=== PATIENT | male | born 1960 | race Caucasian/White ===

== ENCOUNTER → 2019-03-25 10:18 | Outpatient (CLI) | payer MEDICARE, MEDICAID, SELFPAY ==
--- NOTE | 2019-03-25 10:24 | CA_ITS ---
APPROVED REPORT EXAM: Comprehensive 2D, Doppler, and color-flow Echocardiogram Financial Planning Assistant: Pauline Nettles RT(R) Ht: 6 ft 0 in Wt: 193lbs BSA: 2.10 BP: 148/96 mmHg Indications: Shortness of Breath, Atrial Fibrillation (chronic), CAD 2D Dimensions LVOT 2.30 cm (M/F) 1.5-2.5 M-Mode Dimensions RVDd 2.60 cm (0.9-2.6) LA Diam 4.60 cm (1.9-4.0) LVDd 5.20 cm (3.5-5.7) Ao Diam 2.80 cm (2.0-3.7) LVDs 3.90 cm (3.5-5.7) AV Cusp 2.10 cm (1.5-2.6) IVSd 0.90 cm (0.6-1.1) PWd 0.90 cm (0.6-1.1) EF (Teich) 49.30% FS 25.00% EDV (Teich) 130.00 mL ESV (Teich) 65.90 mL LV Diastology E/A Ratio 0.7 MED E' 5.56 (< 7 cm/sec) E'/MED E' Ratio 8.70 (>14) LAT E' 8.41 (<10 cm/sec) E/LAT E' Ratio 5.80 (>14) Mitral Valve MV E Max Je. 48.50 (40-130 cm/s) MV A Velocity 74.50 (40-130 cm/s) E/A Ratio 0.70 Left Ventricle Left atrium is mildly enlarged, left ventricle is normal size, mild concentric left ventricular hypertrophy, visually estimated ejection fraction of 50% with no regional wall motion abnormality. Endocardial surfaces are poorly visualized. Diastolic parameters are inconclusive. Right Ventricle Right atrium and right ventricular normal size and contractility. Aortic Valve Aortic valve is minimally thickened and fibrosed leaflet continue to display good mobility, there is no aortic stenosis or aortic insufficiency. Mitral Valve Mitral valve is grossly normal, there is mild mitral regurgitation. Tricuspid Valve Tricuspid valve is grossly normal, there is mild tricuspid regurgitation, tricuspid regurgitation jet velocity is inadequate for calculation of the right ventricular systolic pressure. Pulmonic Valve Pulmonic valve is poorly visualized. Great Vessels Aortic root is normal size. Pericardium No significant pericardial effusion noted. Conclusion 1. Mildly low left atrium, normal left ventricular size, mild concentric left ventricular hypertrophy, visually estimated ejection fraction 50% with no regional wall motion abnormality, endocardial surfaces are poorly visualized. Diastolic parameters are inconclusive. 2. Mild mitral and tricuspid regurgitation. 3. No significant pericardial effusion noted. Electronically signed by : Jose Ramon Weaver, 03/28/2019 17:49:53
== END ==
PROVIDERS: Visit Provider Internal Medicine
DX: G47.33 Obstructive sleep apnea (adult) (pediatric); I11.9 Hypertensive heart disease without heart failure; I25.10 Atherosclerotic heart disease of native coronary artery without angina pectoris; I48.0 Paroxysmal atrial fibrillation; E78.49 Other hyperlipidemia
CPT/HCPCS: 93306

== ENCOUNTER → 2020-11-10 11:05 | Outpatient (CLI) | payer MEDICARE, MEDICAID, SELFPAY ==
--- NOTE | 2020-11-10 11:06 | CA_ITS ---
APPROVED REPORT EXAM: Comprehensive 2D, Doppler, and color-flow Echocardiogram Straight Slicing Machine Operator: Pauline Nettles RT(R) Ht: 6 ft 0 in Wt: 202lbs BSA: 2.14 BP: 144/89 mmHg Indications: SOB, AFIB, CAD, MR, TR, HLD, AMRIK 2D Dimensions LVOT 2.00 cm (M/F) 1.5-2.5 LVEF (Sewell's) 48.20 % LV Volume 143.90 mL LA Volume 45.20 mL LA Volume Index 21.10 mL/m2 (M/F) 16-34 M-Mode Dimensions RVDd 3.14 cm (0.9-2.6) LA Diam 4.12 cm (1.9-4.0) LVDd 6.20 cm (3.5-5.7) Ao Diam 2.95 cm (2.0-3.7) LVDs 4.79 cm (3.5-5.7) IVSd 1.09 cm (0.6-1.1) PWd 0.60 cm (0.6-1.1) EF (Teich) 44.80% FS 22.70% EDV (Teich) 194.00 mL TAPSE 2.11 (<1.7) ESV (Teich) 107.00 mL LV Diastology E Decel Time 237.00 (160-240 msec) E/A Ratio 0.64 MED E' 6.80 (< 7 cm/sec) E'/MED E' Ratio 8.22 (>14) LAT E' 10.00 (<10 cm/sec) E/LAT E' Ratio 5.59 (>14) Mitral Valve MV E Max Je. 56.00 (40-130 cm/s) MV A Velocity 88.00 (40-130 cm/s) E/A Ratio 0.64 MV Decel. Time 237.00 (160-240 ms) MV PHT 69.00 ms Tricuspid Valve TR P. Velocity 197.00 cm/s RAP Estimate 10.00 mmHg RVSP 25.50 mmHg Left Ventricle Left atrium is mildly enlarged, left ventricle is normal size, mild concentric left ventricular hypertrophy, visually estimated ejection fraction 45%, there is marked hypokinesis involving the inferior, inferior basal and inferolateral wall. Endocardial surfaces are poorly visualized, grade 1 diastolic dysfunction seen without tissue Doppler evidence of raise left atrial pressure. Right Ventricle Right atrium and right ventricle are normal size and contractility. Aortic Valve Aortic valve is minimally thickened and fibrosed, there is no aortic stenosis or aortic insufficiency. Mitral Valve Mitral valve leaflets are minimally thickened, there is mild mitral regurgitation. Tricuspid Valve Tricuspid grossly normal, there is mild tricuspid regurgitation, tricuspid regurgitation jet velocity is inadequate for calculation of the right ventricular systolic pressure. Pulmonic Valve Pulmonic valve is poorly visualized. Great Vessels Aortic root is normal size. Pericardium No significant pericardial effusion noted. Conclusion 1. Mildly enlarged left atrium, normal left ventricular size, mild concentric left ventricular hypertrophy, visually estimated ejection fraction 45% with segmental wall motion abnormality described above, grade 1 diastolic dysfunction seen without tissue Doppler evidence of raise left atrial pressure. 2. Mild mitral and tricuspid regurgitation. 3. No significant pericardial effusion noted. Electronically signed by : Jose Ramon Weaver, 11/11/2020 15:12:09
--- NOTE | 2020-11-10 11:38 | NM_ITS ---
APPROVED REPORT Exam: Nuclear Stress Test Indication: CAD, H/O M.I., HTN, HYPERLIPIDEMIA, SOB, SYNCOPE Patient Location: Outpatient Stress Tech: Soo Gonzalez OR Tech:Marilia Arce, ARRT RT (R)(N)(M) Ht: 6 ft 0 in Wt: 202 lbs HR: 58 bpm BP: 152/93 mmHg BSA: 2.14 m2 History: CAD, H/O M.I., HTN, HYPERLIPIDEMIA, SOB, SYNCOPE Procedure: Patient received a 0.4 mg of intravenous Lexiscan, resting heart rate 58 bpm, resting blood pressure 152/93 mmHg, with Lexiscan maximum heart rate achived was 76 bpm which is Less than 85 % of the maximum predicted heart rate and blood pressure was 135/83 mmHg. With Lexiscan, patient denied any complaint of chest pain. Electrocardiogram Resting electrocardiogram shows sinus rhythm nonspecific ST-T changes, with Lexiscan there is less than 1.[address] segment depression noted from the baseline EKG. The EKG portion of the Lexiscan is nondiagnostic. Cardiac Stress and Resting SPECT Images: Cardiac Stress and Resting SPECT images were obtained using technetium 99m Myoview 31.3 mCi stress and 10.18 mCi at rest. Gated SPECT for analysis of segmental wall motion and calculation of the ejection fraction also done, prone images were also obtained. Cardiac stress and resting SPECT images show moderate to large sized area of fixed defect involving the inferior, inferior lateral, and apical wall consistent with area of myocardial scarring without significant ellie-infarct ischemia. The left ventricle is dilated, there is transient ischemic dilatation of the left ventricle is also seen. Computer derived ejection fraction is 41% with marked hypokinesis involving the inferior, inferior lateral and apical wall. Right ventricle is mildly enlarged with normal contractility. Conclusion: 1. The EKG portion of the Lexiscan is nondiagnostic 2. Scintigraphic evidence of myocardial scarring involving the inferior, inferior lateral and apical wall without significant ellie-infarct ischemia, there is transient ischemic dilatation of the left ventricle seen, computer derived ejection fraction is 41% with segmental wall motion abnormalities described above, right ventricle is mildly enlarged with normal contractility. 3. Abnormal Lexiscan Myoview study. Electronically signed by : Jose Ramon Weaver, 11/11/2020 10:02:01
--- NOTE | 2020-11-10 14:08 | CA_ITS ---
APPROVED REPORT Exam: Pharmacologic Technologist: Soo Gonzalez, Ht: 6 ft 0 in Wt: 202 lbs BSA: 2.14 m2 HR: 58 bpm BP: 152/93 mmHg Medical History Medications: Lisinopril,,,,, Aspirin,,,,, Ferrous sulfate,,,,, Pantoprazole,,,,, HCTZ,,,,, XaRELTO,,,,, Bystolic,,,,, Effient,,,,, Evolocumab,,,,, Stress Test Details Test: LEXISCAN HR Resting HR: 65 bpm Max Heart Rate (APMHR): 158.885232 bpm Max HR Achieved: 78 bpm Target HR (85% APMHR): 134.507329 bpm % of APMHR: 49.37 Recovery HR: 69 bpm BP Resting BP: 152/93 mmHg Max BP: 152/93 mmHg Recovery BP: 144.0/96.0 mmHg ECG Resting ECG: NSR, probable old inferior or inferior-lateral HI, PVC Clinical Exercise duration: 04:08 min Highest Stage Achieved: Stress ECG Conclusion Symptoms: SOA, malaise, mild TREVIÑO. No CP. Arrythmias/Ectopy: Rare PVC. ST-T Changes: No significant changes. Conclusion: Unremarkable Lexiscan stress. Myoview images reported separately. Test Summary . . . . . . Stop exercise at 04:08 . . . . Electronically signed by : Jose Ramon Weaver, 11/11/2020 09:58:00
== END ==
PROVIDERS: PCP Emergency Medicine; Visit Provider Nurse Practitioner Family
DX: E78.5 Hyperlipidemia, unspecified (principal); G47.33 Obstructive sleep apnea (adult) (pediatric); I11.9 Hypertensive heart disease without heart failure; I25.10 Atherosclerotic heart disease of native coronary artery without angina pectoris; I48.91 Unspecified atrial fibrillation; R06.00 Dyspnea, unspecified
CPT/HCPCS: 78452; 93017; 93306; A9502; J2785

== ENCOUNTER 2020-11-18 09:27 | Day surgery (SDC) | payer MEDICARE, MEDICAID, SELFPAY ==
[2020-11-18] VITALS (12 sets, daily range): BP systolic 95–132; BP diastolic 56–83; PULSE 55–67; RESP 16; TEMP 36.9; O2SAT 91–96; BMI 27.3
--- NOTE | 2020-11-18 | IR_ITS ---
APPROVED REPORT Patient Location: Outpatient Four Slide Machine Operator: LAUREL Deleon RT (R) PROCEDURES Left heart catheterization Left ventriculogram Selective coronary angiogram INDICATION Risk abnormal Myoview, Angina pectoris, Informed consent was obtained prior to the procedure. COMPLICATIONS NONE Estimated Blood Loss: LESS THAN 10 MLS TECHNIQUE One percent lidocaine used to anesthetize the right anterior aspect of the wrist. The right radial artery was accessed via the Seldinger technique. A 6 Portuguese sheath was placed in the right radial artery. 2.5 mg of verapamil, 800 mcg of nitroglycerin, 1mg Lidocaine and 5000 U Heparin were given through the arterial sheath. The Poppa catheter was also used to perform left heart catheterization, left ventriculogram and selective coronary angiogram. At the end of the procedure the sheath was removed good hemostasis was achieved using Traclet band, patient was transferred to the postop holding area in stable condition. ANGIOGRAPHIC RESULTS The left main artery Normal The left anterior descending artery Has mild mid vessel smooth 10 to 20% stenoses. LINDA II flow was present The circumflex artery Is a nondominant vessel with a proximal small aneurysmal/vascular ectatic dilatation. LINDA-3 flow is present there is no atherosclerosis identified in the vessel The right coronary artery Is a large dominant vessel and has severe diffuse vascular ectasia accompanied by LINDA II flow. 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 Medical management for both coronary artery disease and vascular ectasia 2. Continue aspirin 3. LDL less than 55 4. Long-acting nitrates may help with the endothelial dysfunction 5. Avoidance of tobacco products 6. Ongoing risk factor modification Electronically signed by : Marco Valle, 11/18/2020 11:12:42
[2020-11-18 10:10] LABS: Basophils # 0.1 K/mm3 (0-0.2); Basophils % 1.4 % (0.1-2.0); Eosinophils # 0.3 K/mm3 (0.0-0.4); Eosinophils % 3.3 % (0.1-12.0); Hematocrit 40.5 % (42.0-52.0); Hemoglobin 12.7 g/dL (14.1-18.0); Lymphocytes # 1.4 K/mm3 (0.7-4.5); Mean Corpuscular HGB Conc 31.2 g/dL (31.8-35.4); Mean Corpuscular Hemoglobin 25.7 pg (27.0-31.2); Mean Corpuscular Volume 82.1 fl (80-94); Mean Platelet Volume 7.3 fl (7.4-10.4); Monocytes # 0.5 K/mm3 (0.1-1.0); Monocytes % 6.3 % (1.7-9.3); Neutrophils # 5.7 K/mm3 (1.8-7.8); Platelet Count 336 K/mm3 (142-424); Red Blood Count 4.93 M/mm3 (4.60-6.20); Red Cell Distribution Width 22.2 % (11.5-17.5)
[2020-11-18 10:17] LABS: Chloride 97 mmol/L (98-107); Sodium 133 mmol/L (136-145)
[2020-11-18 10:18] LABS: Potassium 3.3 mmoL/L (3.5-5.1)
[2020-11-18 10:20] LABS: Anion Gap 14.3 mEq/L (5-15); Blood Urea Nitrogen 12 mg/dl (9-20); Carbon Dioxide 25 mmol/L (22.0-30.0); Creatinine Clearance Estimated 99 mL/min (50-200); Estimated Glomerular Filt Rate 76 ml/min (>60); GFR (African American) 92 ML/MIN (>60)
[2020-11-18 10:21] LABS: Calcium 9.9 mg/dl (8.4-10.2); Glucose 126 mg/dl (74-100)
[2020-11-18 10:35] LABS: Coronavirus 19 IgG Antibody Positive (Negative); Coronavirus 19 IgM Antibody Negative (Negative)
== END 2020-11-18 14:16 | disposition home or self-care (01) ==
PROVIDERS: PCP Family Medicine; Visit Provider Internal Medicine
DX: I25.118 Atherosclerotic heart disease of native coronary artery with other forms of angina pectoris (principal); I10 Essential (primary) hypertension; Z88.8 Allergy status to other drugs, medicaments and biological substances; I48.0 Paroxysmal atrial fibrillation; G47.33 Obstructive sleep apnea (adult) (pediatric); Z79.82 Long term (current) use of aspirin; E78.2 Mixed hyperlipidemia
CPT/HCPCS: 80048; 85025; 86328; 93458; 99152; C1725; C1769; J1644; Q9967

== ENCOUNTER → 2021-12-08 11:46 | Outpatient (CLI) | payer MEDICARE, SELFPAY ==
[2021-12-08 14:09] LABS: Basophils # 0.2 K/mm3 (0-0.2); Basophils % 2.2 % (0.1-2.0); Eosinophils # 0.1 K/mm3 (0.0-0.4); Eosinophils % 1.4 % (0.1-12.0); Hematocrit 43.9 % (42.0-52.0); Hemoglobin 14.8 g/dL (14.1-18.0); Lymphocytes # 1.6 K/mm3 (0.7-4.5); Lymphocytes % 22.7 % (10-50); Mean Corpuscular HGB Conc 33.7 g/dL (31.8-35.4); Mean Corpuscular Hemoglobin 30.4 pg (27.0-31.2); Mean Corpuscular Volume 90.2 fl (80-94); Mean Platelet Volume 7.6 fl (7.4-10.4); Monocytes # 0.4 K/mm3 (0.1-1.0); Monocytes % 5.7 % (1.7-9.3); Neutrophils # 4.8 K/mm3 (1.8-7.8); Platelet Count 372 K/mm3 (142-424); Red Blood Count 4.87 M/mm3 (4.60-6.20); Red Cell Distribution Width 13.6 % (11.5-17.5); White Blood Count 7.1 K/mm3 (4.8-10.8)
[2021-12-08 14:44] LABS: Chloride 101 mmol/L (98-107); Potassium 4.6 mmoL/L (3.5-5.1); Sodium 137 mmol/L (136-145)
[2021-12-08 14:46] LABS: Bilirubin,Unconjugated 0.3 mg/dL (0.0-1.1); Blood Urea Nitrogen 16 mg/dl (9-20); Estimated Glomerular Filt Rate 61 ml/min (>60); GFR (African American) 74 ML/MIN (>60)
[2021-12-08 14:47] LABS: Alanine Aminotransferase 32 U/L (12-78); Albumin Level 4.4 g/dl (3.5-5.0); Alkaline Phosphatase 62 U/L (38-126); Anion Gap 14.6 mEq/L (5-15); Aspartate Amino Transferase 34 U/L (17-59); Bilirubin,Direct 0.1 mg/dl (0.0-0.4); Bilirubin,Indirect 0.3 mg/dL (0.0-0.9); Bilirubin,Total 0.4 mg/dl (0.2-1.3); Calcium 10.5 mg/dl (8.4-10.2); Carbon Dioxide 26 mmol/L (22.0-30.0); Cholesterol 148 mg/dl (140-200); Glucose 116 mg/dl (74-100); Magnesium 1.7 mg/dl (1.6-2.3); Total Protein,Serum 6.9 g/dl (6.3-8.2); Triglycerides 257 mg/dl (30-150); VLDL Cholesterol 51 mg/dL (0-40)
[2021-12-08 14:48] LABS: Chol/HDL Ratio 4.6 (1-3.5); HDL Cholesterol 32 mg/dl (40-60)
[2021-12-08 14:58] LABS: Direct LDL Cholesterol 63.23 mg/dL (100-129)
[2021-12-08 15:03] LABS: Free T4 (Free Thyroxine) 0.84 ng/dl (0.78-2.19)
[2021-12-08 15:17] LABS: Thyroid Stimulating Hormone 0.57 uIU/mL (0.465-4.68)
== END ==
PROVIDERS: Visit Provider Physician Assistant
DX: E78.2 Mixed hyperlipidemia (principal); G47.33 Obstructive sleep apnea (adult) (pediatric); I11.9 Hypertensive heart disease without heart failure; I25.10 Atherosclerotic heart disease of native coronary artery without angina pectoris; I48.0 Paroxysmal atrial fibrillation; R06.00 Dyspnea, unspecified
CPT/HCPCS: 36415; 80048; 80061; 80076; 83735; 84439; 84443; 85025

== ENCOUNTER → 2023-01-30 14:02 | Outpatient (CLI) | payer MEDICARE, MEDICAID, SELFPAY | PROVIDERS: PCP Family Medicine; Visit Provider Nurse Practitioner | DX: E78.2 Mixed hyperlipidemia (principal); G47.33 Obstructive sleep apnea (adult) (pediatric); I11.9 Hypertensive heart disease without heart failure; I25.10 Atherosclerotic heart disease of native coronary artery without angina pectoris; I48.0 Paroxysmal atrial fibrillation; R06.00 Dyspnea, unspecified; R94.31 Abnormal electrocardiogram [ECG] [EKG] | CPT/HCPCS: 93306 ==

== ENCOUNTER 2024-02-12 13:46 | Outpatient (CLI) | payer MEDICARE, MEDICAID, SELFPAY ==
--- NOTE | 2024-02-12 13:47 | CA_ITS ---
APPROVED REPORT EXAM: Comprehensive 2D, Doppler, and color-flow Echocardiogram Sodder: Maria Victoria Wilkinson RVT Ht: 6 ft 0 in Wt: 199lbs BSA: 2.13 BP: 137/92 mmHg Indications: CHF,A-FIB,CAD,ABN EKG,HLD,HFrEF,CM 2D Dimensions LA Volume 75.50 mL LA Volume Index 35.45 mL/m2 (M/F) 16-34 M-Mode Dimensions RVDd 2.87 cm (0.9-2.6) LA Diam 3.92 cm (1.9-4.0) LVDd 5.02 cm (3.5-5.7) LVDs 3.63 cm (3.5-5.7) IVSd 1.28 cm (0.6-1.1) PWd 0.56 cm (0.6-1.1) EF (Teich) 53.50% FS 27.70% EDV (Teich) 119.30 mL TAPSE 1.88 (<1.7) ESV (Teich) 55.50 mL LV Diastology E Decel Time 170 (160-240 msec) E/A Ratio 0.4 Aortic Valve JOAN Index 1.38 cm2/m2 AoV Peak Je. 119.0 (50-130 cm/s) AO Peak GR. 5.70 mmHg AO Mean GR. 3.60 (<5 mmHg) AO VTI 26.5 (18-25 cm) JOAN (VTI) 3.00 (2.5-4.5 cm2) Mitral Valve MV E Max Je. 32.0 (40-130 cm/s) MV A Velocity 83.0 (40-130 cm/s) E/A Ratio 0.38 MV PHT 50.0 ms Pulmonary Valve PV Peak Velocity 83.0 (50-150 cm/s) Tricuspid Valve TR P. Velocity 260.00 cm/s RAP Estimate 10.00 mmHg RVSP 37.10 mmHg Left Ventricle The left ventricle is normal size. Left ventricular systolic function is mildly to moderately decreased. There is increased LV wall thickness. There is moderate hypokinesis of the lateral, inferolateral, anterolateral, and inferoseptal LV goode. Grade 1 diastolic dysfunction is present. LVEF is 40%. Right Ventricle The right ventricle is normal size. The right ventricular systolic function is normal. Atria Left atrium is mildly dilated. The right atrium size is normal. There is no Doppler evidence of interatrial shunt. Aortic Valve The aortic valve is mildly thickened. There is no aortic valvular stenosis. No aortic regurgitation is present. Mitral Valve The mitral valve is normal in structure. No evidence of mitral valve stenosis. Mild mitral regurgitation. Tricuspid Valve The tricuspid valve leaflets are thin and pliable. Trace tricuspid regurgitation. There is insufficient TR jet to estimate RVSP. Pulmonic Valve The pulmonary valve is normal in structure. Trace pulmonic regurgitation. Great Vessels The aortic root is normal in size. The ascending aorta is not well-visualized. IVC is normal in size and collapses >50% with inspiration. Pericardium There is no pericardial effusion. Other Information Study Quality: Fair Conclusion Mild to moderate reduction in LV systolic function (LVEF 40%). Moderate hypokinesis of the lateral, inferolateral, anterolateral, and inferoseptal LV goode. Mild LA dilation. Mild MR. In the setting of cardiomyopathy with multiple regional wall motion abnormalities without a clear coronary distribution, further evaluation with cardiac MRI (cardiomyopathy protocol) is recommended. Electronically signed by : Jessy Wang MD 02/12/2024 23:28:00
== END 2024-02-12 23:59 | disposition home or self-care (01) ==
LOC: RT 13:46
PROVIDERS: PCP Family Medicine; Visit Provider Nurse Practitioner
DX: I34.0 Nonrheumatic mitral (valve) insufficiency (principal); I51.89 Other ill-defined heart diseases; I50.20 Unspecified systolic (congestive) heart failure
CPT/HCPCS: 93306

== ENCOUNTER 2024-03-12 09:02 | Outpatient (CLI) | payer MEDICARE, MEDICAID, SELFPAY ==
--- NOTE | 2024-03-12 09:30 | MR_ITS ---
APPROVED REPORT Production Operations Engineer: CLINICAL INDICATION HFrEF, cardiomyopathy evaluation TECHNIQUE Image Acquisition: Cardiac magnetic resonance (CMR) was performed on Siemens Espree MRI 1.5T scanner. Software platform sequences were performed using the Siemens Mailana MR B19 platform. A set of three-plane, low-resolution, large [id number] localizers were initially acquired. Then axial, coronal, sagittal TrueFISP, as well as axial HASTE images, were obtained. These were followed by gated TrueFISP breathold cinematic sequences obtained in the short axis with 8 mm slices and 2 mm gaps, 2-chamber (vertical long axis), 3-chamber, 4-chamber (horizontal long axis). A bolus of contrast was injected intravenously with first-pass sequences obtained in the short axis and four-chamber planes. After approximately 10 minutes, a TI supervisor of communications sequence was performed to determine the optimal TI time. Using the optimized TI time, delayed contrast enhancement segmented inversion???recovery TurboFLASH sequences were obtained in the short axis, 2-chamber, 3-chamber, and 4-chamber projections. 2D-velocity phase mapping was performed. Functional parameters were calculated by offline analysis on an independent workstation ([employer], [employer]). Contrast: ProHance??? (Gadoteridol) FINDINGS MORPHOLOGY AND FUNCTION Left ventricle: The left ventricle is normal in size. The indexed left ventricular end-diastolic volume (LVEDVi) is 53 ml/m2 (reference range 57-105 ml/m2 in males, 56-96 ml/m2 in females). Mild reduction in left ventricular systolic function is present. There is normal left ventricular wall thickness. There is myocardial thinning noted in the basal inferior lateral LV wall. There is akinesis of the basal inferolateral LV wall, as well as the distal LV wall towards the LV apex. Trabeculations are noted in the distal LV wall, but not meeting criteria of LV noncompaction. LVEF is calculated at 46.9% (reference range 57-77%). Right ventricle: The right ventricle is normal in size. The indexed right ventricular end-diastolic volume (RVEDVi) is 70 ml/m2 (reference range 61-121 ml/m2 in males, 48-112 ml/m2 in females). Normal right ventricular systolic function is present. RVEF is calculated at 58.0% (reference range 52-72% in males, 51-71% in females). Atria: The left atrium is mildly dilated. The maximum indexed left atrial volume is 53 ml/m2 (reference range 26-52 ml/m2 in males, 27-53 ml/m2 in females). The right atrium is normal in size. The maximum indexed right atrial volume is 25 ml/m2 (reference range 18-90 ml/m2). Aorta: The diameter of the aortic annulus is normal, measuring 26 mm (coronal view reference range 21-30 mm in males, 19-27 mm in females). The diameter of the aortic sinus is normal, measuring 37 mm (coronal view reference range 25-42 mm in males, 24-36 mm in females). The diameter of the sinotubular junction is normal, measuring 30 mm (coronal view reference range 18-32 mm in males, 18-28 mm in females). The diameters of the ascending and descending thoracic aorta are normal. Main pulmonary artery: The main pulmonary artery diameter is normal. Pericardium: The pericardial thickness is normal. The pericardial thickness measures 1.5 mm (normal < 4.0 mm). There is no pericardial effusion. VALVES The valvular morphologies in the visualized sequences appear normal. There is no significant valvular stenosis or regurgitation of the mitral, aortic, tricuspid, or pulmonic valve noted visually. Systolic anterior motion of the mitral valve is not visualized. Ratio of pulmonary to systemic flow, Qp:Qs ratio cannot be calculated due to technical difficulty during image acquisition. TISSUE CHARACTERIZATION Resting Perfusion: Resting hypoperfusion is present in the basal inferior and inferolateral LV wall. Myocardial Fibrosis and/or edema: Abnormal gadolinium kinetics are present. There is transmural late gadolinium enhancement noted in the basal inferior and inferolateral LV goode, as well as a focus of subepicardial LGE in the same region. T2-weighted imaging demonstrates myocardial edema in the basal inferolateral LV wall. OTHER No other significant findings are noted. However, this exam is focused on the cardiac structure and function. IMPRESSION Normal LV size with mild reduction in LV systolic function. LVEDVi= 53 ml/m2 and LVEF= 46.9%. Normal RV size with normal RV systolic function. RVEDVi= 70 ml/m2 and RVEF= 58.0%. Mild LA enlargement. Resting hypoperfusion is present in the basal inferior and inferolateral LV wall. Transmural late gadolinium enhancement noted in the basal inferior and inferolateral LV goode. T2-weighted imaging demonstrates myocardial edema in the basal inferolateral LV wall. Overall, this CMR demonstrates mild LV cardiomyopathy with evidence of transmural LGE in the inferolateral LV wall. These findings may be suggestive of underlying coronary disease, and therefore ischemia reevaluation is suggested (last [facility] in 2020). Nonetheless, the pattern of LGE in the inferolateral LV wall in the context of normal LV wall thickness and presence of myocardial edema and subepicardial LGE may be suggestive of postinflammatory cardiomyopathy (e.g. due to myocarditis). Evaluation for etiology of myocarditis is suggested initiation of GDMT and reevaluation with repeat CMR in 3-6 months is suggested. If no future improvement, an endomyocardial biopsy may be considered. COMPARISON None CRITICAL RESULT None COMMUNICATION Per this written report The findings of this cardiac MR were reviewed, reported, and signed by Andres Wang MD (Building Contractor). Conclusion Electronically signed by : Jessy Wang MD 03/19/2024 16:34:40
[2024-03-12 10:04] LABS: Blood Urea Nitrogen 20 mg/dl (9-20); Estimated Glomerular Filt Rate 51 ml/min (>60); GFR (African American) 62 ML/MIN (>60)
[2024-03-12] MEDS: 0.9 % SODIUM CHLORIDE 50 ML VIAL IV (13:28)
[2024-03-12] MEDS: GADOTERIDOL INJ 20ML SYRINGE 19 ML IV (13:28)
[2024-03-12] MEDS: SODIUM CHLORIDE 0.9% 10ML SYR (RAD ONLY) 10 ML IV (13:28)
== END 2024-03-12 23:59 | disposition home or self-care (01) ==
LOC: RAD 09:02
PROVIDERS: PCP Family Medicine; Visit Provider Nurse Practitioner
DX: I50.20 Unspecified systolic (congestive) heart failure (principal)
CPT/HCPCS: 36415; 75561; 82565; 84520; A9576

== ENCOUNTER 2024-03-27 10:52 | Outpatient (CLI) | payer MEDICARE, MEDICAID, SELFPAY ==
[2024-03-27 12:22] LABS: Alanine Aminotransferase 31 U/L (12-78); Albumin Level 4.4 g/dl (3.5-5.0); Alkaline Phosphatase 73 U/L (38-126); Aspartate Amino Transferase 35 U/L (17-59); Bilirubin,Direct 0.2 mg/dl (0.0-0.4); Bilirubin,Indirect 0.4 mg/dL (0.0-0.9); Bilirubin,Total 0.6 mg/dl (0.2-1.3); Bilirubin,Unconjugated 0.4 mg/dL (0.0-1.1); Chol/HDL Ratio 5.1 (1-3.5); Cholesterol 163 mg/dl (140-200); HDL Cholesterol 32 mg/dl (40-60); Total Protein,Serum 7.1 g/dl (6.3-8.2); Triglycerides 333 mg/dl (30-150); VLDL Cholesterol 67 mg/dL (0-40)
[2024-03-27 12:34] LABS: Direct LDL Cholesterol 81.84 mg/dL (100-129)
== END 2024-03-27 23:59 | disposition home or self-care (01) ==
LOC: LAB 10:53
PROVIDERS: Nurse Practitioner; PCP Internal Medicine; Visit Provider Nurse Practitioner Family
DX: I10 Essential (primary) hypertension (principal); E78.2 Mixed hyperlipidemia; I11.9 Hypertensive heart disease without heart failure; I20.9 Angina pectoris, unspecified; I25.119 Atherosclerotic heart disease of native coronary artery with unspecified angina pectoris
CPT/HCPCS: 36415; 80061; 80076

== ENCOUNTER 2024-04-15 10:58 | Outpatient (CLI) | payer MEDICARE, MEDICAID, SELFPAY ==
--- NOTE | 2024-04-15 10:59 | CA_ITS ---
APPROVED REPORT Exam: Pharmacologic Technologist: Rina Butcher Ht: 6 ft 0 in Wt: 195 lbs BSA: 2.11 m2 HR: 59 bpm BP: 138/88 mmHg Indications: Abnormal Cardiac MRI, Chest pain, HFrEF Medical History Medications: Lisinopril,,,,, Vitamin C,,,,, Vitamin D3,,,,, Pantoprazole,,,,, CloPIdogrel,,,,, Hydroxyzine,,,,, Multivitamin,,,,, RIvaROXABAN,,,,, NeBivolol,,,,, EMpagliflozin,,,,, Evolocumab,,,,, Furosemide,,,,, Stress Test Details Test: LEXISCAN HR Resting HR: 60 bpm Max Heart Rate (APMHR): 155 bpm Max HR Achieved: 79 bpm Target HR (85% APMHR): 132 bpm % of APMHR: 51 Recovery HR: 67 bpm BP Resting BP: 138.0/88.0 mmHg Max BP: 143.0/84.0 mmHg Recovery BP: 135.0/85.0 mmHg ECG Resting ECG: Normal sinus rhythm, T wave changes at baseline Stress ECG: No significant ST changes Arrhythmia: None Clinical Exercise duration: 04:00 min Highest Stage Achieved: Exercise capacity: 1.0 METs Stress ECG Conclusion Symptoms: Shortness of air Arrhythmias/Ectopy: None ST-T Changes: No significant ST changes. Conclusion: Unremarkable Lexiscan stress test. Myoview images reported separately. Test Summary REST . . . . . . . Resting REST 06:46 . . 60 . 138/ 88 . . Stage 1 . . . . . . . Myoview Injected Stage 1 01:00 . . 68 . . . . Stage 2 01:00 . . 75 . 133/ 84 . . Stage 3 01:00 . . 72 . 126/ 87 . . Stage 4 01:00 . . 71 . 143/ 84 . Stop exercise at 04:00 RECOVERY 01:00 . . 70 . 135/ 85 . . RECOVERY 01:15 . . 71 . 135/ 85 . . Electronically signed by : Jessy Wang MD 04/16/2024 12:08:44
--- NOTE | 2024-04-15 10:59 | NM_ITS ---
APPROVED REPORT Exam: Nuclear Stress Test Indication: Palpitations, Fatigue, HTN, High cholesterol, Tobacco use, CAD, Hx of NC Patient Location: Outpatient Stress Tech: Rina Butcher MS Tech:Chela Hutton, ARRT, RT (R)(N) Ht: 5 ft 11 in Wt: 200 lbs HR: 60 bpm BP: 138/88 mmHg BSA: 2.11 m2 TID: 1.16 BMI: 27.8 History: Palpitations, Fatigue, HTN, High cholesterol, Tobacco use, CAD, Hx of NC Procedure: Patient received 0.4 mg of intravenous Lexiscan, resting heart rate 60 bpm, resting blood pressure 138/88 mmHg, with Lexiscan maximum heart rate achieved was 79 bpm which is % of the maximum predicted heart rate and blood pressure was 143/84 mmHg. With Lexiscan, patient denied any complaint of chest pain. Cardiac Stress and Resting SPECT Images: Cardiac Stress and Resting SPECT images were obtained using technetium 99m Myoview 31.7 mCi stress and 10.81 mCi at rest. Resting and stress imaging in supine and prone positions demonstrate a large sized, severe, fixed perfusion defect in the inferior LV wall from the base and extending distally towards the inferoapical and inferolateral LV goode. Gated imaging demonstrates moderate reduction global LV systolic function. There is akinesis of the inferior LV wall. There is also moderate hypokinesis of the lateral LV wall. LVEF is calculated at 39%. Conclusion: Large sized, severe, fixed perfusion defect in the inferior LV wall from the base and extending distally towards the inferoapical and inferolateral LV goode. No evidence of reversible ischemia. Gated imaging demonstrates moderate reduction global LV systolic function. There is akinesis of the inferior LV wall. There is also moderate hypokinesis of the lateral LV wall. LVEF is calculated at 39%. Electronically signed by : Jessy Wang MD 04/16/2024 12:10:22
[2024-04-15] MEDS: ISOTOPE MYOVIEW (PER STUDY) 1 DOSE IV (13:10)
[2024-04-15] MEDS: REGADENOSON 0.4MG/5ML SYRINGE 0.4 MG IV (13:10)
[2024-04-15] MEDS: SODIUM CHLORIDE 0.9% 10ML SYR (RAD ONLY) 10 ML IV ×2 (13:10)
== END 2024-04-15 23:59 | disposition home or self-care (01) ==
LOC: RAD 10:59
PROVIDERS: PCP Family Medicine; Visit Provider Nurse Practitioner
DX: R06.02 Shortness of breath (principal)
CPT/HCPCS: 78452; 93017; 93018; A9502; J2785

== ENCOUNTER 2024-04-24 11:13 | Outpatient (CLI) | payer MEDICARE, MEDICAID, SELFPAY ==
[2024-04-24 11:35] LABS: Basophils # 0.1 K/mm3 (0-0.2); Basophils % 1.1 % (0.1-2.0); Eosinophils # 0.4 K/mm3 (0.0-0.4); Eosinophils % 4.7 % (0.1-12.0); Hematocrit 42.4 % (42.0-52.0); Hemoglobin 13.8 g/dL (14.1-18.0); Lymphocytes # 2.2 K/mm3 (0.7-4.5); Lymphocytes % 23.8 % (10-50); Mean Corpuscular HGB Conc 32.7 g/dL (31.8-35.4); Mean Corpuscular Hemoglobin 28.8 pg (27.0-31.2); Mean Corpuscular Volume 88.2 fl (80-94); Mean Platelet Volume 6.8 fl (7.4-10.4); Monocytes # 0.5 K/mm3 (0.1-1.0); Monocytes % 5.4 % (1.7-9.3); Neutrophils # 5.9 K/mm3 (1.8-7.8); Neutrophils % 65.2 % (37.0-80.0); Platelet Count 255 K/mm3 (142-424); Red Cell Distribution Width 15.6 % (11.5-17.5); White Blood Count 9.1 K/mm3 (4.8-10.8)
[2024-04-24 12:00] LABS: Chloride 106 mmol/L (98-107)
[2024-04-24 12:01] LABS: Potassium 3.6 mmoL/L (3.5-5.1)
[2024-04-24 12:03] LABS: Blood Urea Nitrogen 25 mg/dl (9-20); Estimated Glomerular Filt Rate 61 ml/min (>60); GFR (African American) 74 ML/MIN (>60)
[2024-04-24 12:11] LABS: Sodium 137 mmol/L (136-145)
[2024-04-24 12:14] LABS: Anion Gap 12.6 mEq/L (5-15); Calcium 9.8 mg/dl (8.4-10.2); Carbon Dioxide 22 mmol/L (22.0-30.0); Glucose 109 mg/dl (74-100)
== END 2024-04-24 23:59 | disposition home or self-care (01) ==
LOC: LAB 11:14
PROVIDERS: PCP Family Medicine; Visit Provider Nurse Practitioner
DX: I25.10 Atherosclerotic heart disease of native coronary artery without angina pectoris (principal); I50.20 Unspecified systolic (congestive) heart failure
CPT/HCPCS: 36415; 80048; 85025

== ENCOUNTER 2024-05-15 10:18 | Outpatient (CLI) | payer MEDICARE, MEDICAID, SELFPAY | END 2024-05-15 23:59 | disposition home or self-care (01) | LOC: RAD 10:18 | PROVIDERS: PCP Family Medicine; Visit Provider Nurse Practitioner | DX: I50.9 Heart failure, unspecified (principal) ==